=== PATIENT | female | born 1985 ===

== ENCOUNTER 2016-09-23 19:01 | Observation (INO) | payer OTHER ==
[2016-09-23] MEDS ORDERED: SODIUM CHLORIDE 0.9% 1000ML 1,000 ML IV ONE (19:33)
[2016-09-23 23:33] LABS: APPEARANCE,URINE Clear; BILIRUBIN,URINE NEGATIVE (NEGATIVE); COLOR,URINE Light yellow; GLUCOSE, URINE (UA) NEGATIVE (NEGATIVE); KETONES,URINE NEGATIVE (NEGATIVE); LEUKOCYTE ESTERASE ,URINE NEGATIVE (NEGATIVE); NITRATE,URINE NEGATIVE (NEGATIVE); OCCULT BLOOD,URINE NEGATIVE (NEG-TRACE); PH,URINE 5.5; UROBILINOGEN,URINE 0.2 (0.2-1.0 EU)
[2016-09-23 23:38] LABS: BASOPHILS % (AUTO) 2 % (0-3); EOSINOPHILS % (AUTO) 2 % (0-9); HEMATOCRIT 33 % (35-47); MEAN CORPUSCULAR HGB CONC 36.4 gm/dl (32.0-36.0); MEAN CORPUSCULAR VOLUME 86 fL (81-99); MONOCYTES % (AUTO) 9.1 % (0-12); NEUTROPHILS % (AUTO) 44.4 % (37-80)
[2016-09-23 23:48] LABS: RBC,URINE NEGATIVE (0-3AV/HPF)
[2016-09-23 23:49] LABS: AMPHETAMINES NEGATIVE (NEGATIVE); METHADONE NEGATIVE (NEGATIVE); OPIATES(OP13) NEGATIVE (NEGATIVE); OXYCODONE(OXY) NEGATIVE (NEGATIVE); PROPOXYPHENE(PPX) NEGATIVE (NEGATIVE); TRICYCLIC ANTIDEPRESSANTS NEGATIVE (NEGATIVE); WBC,URINE 0-2 (0-5AV/HPF)
[2016-09-23 23:52] LABS: ALBUMIN 3.1 gm/dl (3.4-5.0); ALT 19 IU/L (14-63); GLOM FILT RATE 105 mL/min (>60); POTASSIUM 3.6 mMol/L (3.5-5.1); SODIUM 143 mMol/L (136-145)
[2016-09-24 16:00] VITALS: O2SAT 97
[2016-09-24] MEDS: SODIUM CHLORIDE 0.9% FLUSH 10 ML SOL IV SCH (17:00)
[2016-09-25] MEDS: SODIUM CHLORIDE 0.9% FLUSH 10 ML SOL IV SCH ×2 (00:30→08:30)
[2016-09-25 08:10] VITALS: BP 98/63; PULSE 62; RESP 18; TEMP 97.5
== END 2016-09-25 13:35 | disposition home or self-care (01) ==
LOC: ED 19:01 → ACUTE CARE 22:25
PROVIDERS: ADMIT Family Medicine; ATTEND Family Medicine
DX: T43.221A Poisoning by selective serotonin reuptake inhibitors, accidental (unintentional), initial encounter (principal); R00.0 Tachycardia, unspecified; R40.0 Somnolence; R42 Dizziness and giddiness; F32.9 Major depressive disorder, single episode, unspecified; F41.9 Anxiety disorder, unspecified
CPT/HCPCS: 36415; 80053; 80305; 80307; 81001; 84703; 85025; 93005; 93012; 96365; 99218; 99285